=== PATIENT | male | born 2000 | race Caucasian/White ===

== ENCOUNTER 2019-08-01 18:12 | Emergency (ER) | payer OTHER ==
[~2019-08-01] VITALS: Ht 188 cm; Wt 68.0 kg
[2019-08-01 18:36] VITALS: BP 132/79
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
--- NOTE | 2019-08-01 19:21 | Diagnostic Imaging Report ---
Indication: Headache Technique: Contiguous 5 mm thick transaxial imaging of the head obtained in a Siemens Sensation [address] scanner. Soft tissue and bone windows generated. Automatic Exposure Control was utilized. Total Dose length Product (DLP): 1114.1mGycm CT Dose Index Volume (CTDIvol): 53.4 mGy Comparison: none Findings: The size and configuration of the cortical sulci, basal cisterns, and ventricles are within normal limits for age. There is no mass effect, midline shift, or edema identified. There is no evidence of acute hemorrhage or abnormal intra-axial or extra-axial fluid collections. The bones and soft tissues are unremarkable. There is a cavum septum pellucidum. Impression: No mass effect, edema or acute bleed. The CT scanner at [facility] is accredited by the [employer] and the scans are performed using dose optimization techniques as appropriate to a performed exam including Automatic Exposure control.
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
[2019-08-01] MEDS ORDERED: Methocarbamol 750mg tab ORAL ONE (21:30)
[2019-08-01] MEDS ORDERED: TYLENOL EXTRA500 MG ORAL (21:32)
[2019-08-01] MEDS ORDERED: ROBAXIN-750750 MG PO (21:32)
[2019-08-01 21:42] VITALS: BP 132/79
--- NOTE | 2019-08-01 21:42 | NUR ---
ER DISCHARGE NOTE: Patient is cleared to be discharged per ERMD, pt is aox4, on room air, with stable vital signs. pt was given dc and prescription instructions, pt was able to verbalize understanding, pt id band removed without complications. pt is able to ambulate with steady gait. pt took all belongings.
== END 2019-08-01 21:42 | disposition home or self-care (01) ==
LOC: EMR 18:40
DX: F07.81 Postconcussional syndrome (principal); S16.1XXA Strain of muscle, fascia and tendon at neck level, initial encounter; S00.03XA Contusion of scalp, initial encounter; V43.52XA Car driver injured in collision with other type car in traffic accident, initial encounter; Y92.411 Interstate highway as the place of occurrence of the external cause
CPT/HCPCS: 70450; 70551; 72125; 99284